=== PATIENT | male | born 1985 | race Caucasian/White ===

== ENCOUNTER 2024-12-14 03:34 | Emergency (ER) | payer OTHER ==
[~2024-12-14] VITALS: Ht 188 cm; Wt 99.0 kg
[2024-12-14] MEDS ORDERED: CYCLOBENZAPRINE10 MG PO (04:08)
[2024-12-14] MEDS ORDERED: CYCLOBENZAPRINE HCL 10 MG HOME.PACK PO ONE (04:15)
[2024-12-14] MEDS ORDERED: methylPREDNISolone 4 MG HOME.PACK PO ONE (04:15)
[2024-12-14 04:50] VITALS: BP 138/89
== END 2024-12-14 04:51 | disposition home or self-care (01) ==
LOC: ED 03:34
DX: S93.602A Unspecified sprain of left foot, initial encounter (principal); X58.XXXA Exposure to other specified factors, initial encounter
CPT/HCPCS: 73630; 99283